=== PATIENT | male | born 1975 | race Caucasian/White ===

== ENCOUNTER 2021-07-31 01:56 | Emergency (ER) | payer BC ==
[2021-07-31] MEDS ORDERED: Ondansetron 4 MG/2 ML SDV IVPUSH ONE (02:18)
[2021-07-31] MEDS ORDERED: HYDROmorphone 0.5 MG/0.5 ML Syringe IVPUSH ONE ×3 (02:18→05:35)
--- NOTE | 2021-07-31 02:22 | EDM.PDOC ---
ED HPI GENERAL MEDICAL PROBLEM - General Chief Complaint: Flank Pain Stated Complaint: LOW LEFT BACK PAIN Time Seen by Provider: 07/31/21 02:19 Source of Information: Reports: Patient History Limitations: Reports: No Limitations - History of Present Illness INITIAL COMMENTS - FREE TEXT/NARRATIVE: pt states he started with pain in the lower left abdoman about 11 pm tonight. he then started to vomit and he is haviing more generalized abdomanal pain Onset: Today Duration: Hour(s): Location: Reports: Abdomen, Generalized Associated Symptoms: Reports: Nausea/Vomiting Abdominal Pain Score (Numeric/FACES): 3 - Related Data Allergies Allergy/AdvReac Type Severity Reaction Status Date / Time No Known Allergies Allergy Verified 07/31/21 02:14 Home Meds: Home Meds Albuterol [Proventil HFA] 200 puff INH Q4H 07/31/21 [History] ED ROS GENERAL - Review of Systems Review Of Systems: See Below Constitutional: Reports: Decreased Appetite HEENT: Reports: No Symptoms Respiratory: Reports: No Symptoms Cardiovascular: Reports: No Symptoms Endocrine: Reports: No Symptoms GI/Abdominal: Reports: Abdominal Pain, Nausea, Vomiting : Reports: No Symptoms Musculoskeletal: Reports: No Symptoms Skin: Reports: No Symptoms Neurological: Reports: No Symptoms Psychiatric: Reports: Anxiety ED EXAM, GI/ABD - Physical Exam Exam: See Below Text/Narrative:: pt arrived with severe abdomanal pain which started in the left flank area. He has no history of kidney stones. Exam Limited By: No Limitations General Appearance: Alert, Anxious, Severe Distress, Active Emesis (pupils are equal and reactive. ), Other Ears: Normal TMs Nose: Normal Inspection Throat/Mouth: Normal Inspection Head: Atraumatic Neck: Normal Inspection Respiratory/Chest: No Respiratory Distress Cardiovascular: Regular Rate, Rhythm GI/Abdominal Exam: Other (pt has generalized abdomanal tenderness. He has guarding. ) (Male) Exam: Deferred Rectal (Males) Exam: Deferred Back Exam: Normal Inspection Extremities: Normal Inspection Neurological: Alert, Oriented, Normal Cognition Course - Vital Signs Last Recorded V/S: Last Vital Signs Temp 36.7 C 07/31/21 02:15 Pulse 95 07/31/21 05:13 Resp 18 07/31/21 05:13 BP 131/70 07/31/21 05:13 Pulse Ox 93 L 07/31/21 05:13 - Orders/Labs/Meds Labs: Laboratory Tests 07/31/21 07/31/21 07/31/21 Range/Units 02:17 02:25 02:25 WBC 20.0 H (4.5-11.0) K/uL RBC 5.34 (4.30-5.90) M/uL Hgb 15.2 H (12.0-15.0) g/dL Hct 44.1 (40.0-54.0) % MCV 83 (80-98) fL MCH 29 (27-31) pg MCHC 35 (32-36) % Plt Count 217 (150-400) K/uL Neut % (Auto) 87.5 H (36-66) % Lymph % (Auto) 7.6 L (24-44) % [place] % (Auto) 4.4 (2-6) % Eos % (Auto) 0.3 L (2-4) % Baso % (Auto) 0.2 (0-1) % Sodium 137 L (140-148) mmol/L Potassium 3.6 (3.6-5.2) mmol/L Chloride 99 L (100-108) mmol/L Carbon Dioxide 28 (21-32) mmol/L Anion Gap 13.6 (5.0-14.0) mmol/L BUN 20 H (7-18) mg/dL Creatinine 1.4 H (0.8-1.3) mg/dL Est Cr Clr Drug Dosing 68.08 mL/min Estimated GFR (MDRD) 55 L (>60) Glucose 152 H (74-106) mg/dL Calcium 9.1 (8.5-10.1) mg/dL Total Bilirubin 0.7 (0.2-1.0) mg/dL AST 19 (15-37) U/L ALT 43 (12-78) U/L Alkaline Phosphatase 79 (46-116) U/L C-Reactive Protein < 0.05 (0.0-0.3) mg/dL Total Protein 7.5 (6.4-8.2) g/dL Albumin 4.2 (3.4-5.0) g/dL Globulin 3.3 (2.3-3.5) g/dL Albumin/Globulin Ratio 1.3 (1.2-2.2) Urine Color Yellow (YELLOW) Urine Appearance Slightly cloudy A (CLEAR) Urine pH 7.0 (5.0-8.0) Ur Specific [place] 1.025 (1.008-1.030) Urine Protein Negative (NEGATIVE) mg/dL Urine Glucose (UA) Negative (NEGATIVE) mg/dL Urine Ketones Negative (NEGATIVE) mg/dL Urine Occult Blood Negative (NEGATIVE) Urine Nitrite Negative (NEGATIVE) Urine Bilirubin Negative (NEGATIVE) Urine Urobilinogen 0.2 (0.2-1.0) EU/dL Ur Leukocyte Esterase Negative (NEGATIVE) Urine RBC 0-5 (0-5) Urine WBC 0-5 (0-5) Ur Epithelial Cells Rare Amorphous Sediment Moderate Urine Bacteria Moderate Urine Mucus Not seen Meds: Medications Discontinued Medications Generic Name Dose Route Start Last Admin Trade Name Freq PRN Reason Stop Dose Admin Hydromorphone HCl 0.5 mg 07/31/21 02:18 07/31/21 02:29 Hydromorphone 0.5 Mg/0.5 Ml Syringe IVPUSH 07/31/21 02:19 0.5 mg ONETIME ONE Administration Hydromorphone HCl 0.5 mg 07/31/21 02:58 07/31/21 03:03 Hydromorphone 0.5 Mg/0.5 Ml Syringe IVPUSH 07/31/21 02:59 0.5 mg ONETIME ONE Administration Hydromorphone HCl 0.5 mg 07/31/21 05:35 07/31/21 05:39 Hydromorphone 0.5 Mg/0.5 Ml Syringe IVPUSH 07/31/21 05:36 0.5 mg ONETIME ONE Administration Sodium Chloride 1,000 mls @ 999 mls/hr 07/31/21 02:30 07/31/21 02:29 Normal Saline IV 999 mls/hr ASDIRECTED KAILEY Administration Sodium Chloride 80 mls @ 3 mls/sec 07/31/21 03:30 07/31/21 03:34 Normal Saline IV 3 mls/sec ASDIRECTED KAILEY Administration Sodium Chloride 1,000 mls @ 500 mls/hr 07/31/21 04:15 07/31/21 04:43 Normal Saline IV 500 mls/hr ASDIRECTED KAILEY Administration Iopamidol 100 ml 07/31/21 03:16 07/31/21 03:34 Iopamidol 612 Mg/Ml 100 Ml Bottle IV 08/01/21 03:17 100 ml . DIRECTED PRN Administration RADIOLOGY EXAM Ondansetron HCl 4 mg 07/31/21 02:18 07/31/21 02:28 Ondansetron 4 Mg/2 Ml Sdv IVPUSH 07/31/21 02:19 4 mg ONETIME ONE Administration Sodium Chloride 10 ml 07/31/21 03:16 07/31/21 03:33 Sodium Chloride 0.9% 10 Ml Syringe FLUSH 10 ml ONETIME PRN Administration per radiology protocol - Re-Assessments/Exams Free Text/Narrative Re-Assessment/Exam: 07/31/21 05:14 cat scan showed a 5 mm stone in the bladder. Pt did have a 20,000 wbc which was felt to be related to severe pain. 08/03/21 07:39 Departure - Departure Time of Disposition: 05:15 Disposition: Home, Self-Care 01 Condition: Fair Clinical Impression: Ureteral calculus, left - Discharge Information Instructions: Kidney Stones, [id number] Referrals: PCP,None [Primary Care Provider] - Forms: ED Department Discharge Care Plan Goals: push fluids, rtc if persistent discomfort, Sepsis Event Note (ED) - Evaluation Sepsis Screening Result: No Definite Risk
[2021-07-31] MEDS ORDERED: Sodium Chloride 0.9% 1,000 ML IV SCH ×2 (02:30→04:15)
[2021-07-31] MEDS ORDERED: Iopamidol 612 MG/ML 100 ML Bottle IV PRN (03:16)
[2021-07-31] MEDS ORDERED: Sodium Chloride 0.9% 10 ML Syringe FLUSH PRN (03:16)
[2021-07-31] MEDS ORDERED: Sodium Chloride 0.9% 80 ML IV SCH (03:30)
--- NOTE | 2021-07-31 05:05 | CRLCT ---
For Patients: As a result of the Century Cures Act, medical imaging exams and procedure reports are released immediately into your electronic medical record. You may view this report before your referring provider. If you have questions, please contact your health care provider. INDICATION: Acute onset abdominal pain for the last 4 hours TECHNIQUE: CT abdomen and pelvis acquired with 100 cc Isovue-300 IV contrast. COMPARISON: None FINDINGS: Lower chest: Unremarkable. Liver: 1.4 x 2.0 cm hypodense lesion in the caudate lobe of the liver this measures 53 Hounsfield units in density. Spleen: Unremarkable. Pancreas: Unremarkable. Gallbladder and bile ducts: Unremarkable. Adrenal glands: Unremarkable. Kidneys: Mild left hydronephrosis and hydroureter. There is a 5 mm stone within the left side of the urinary bladder. Mild left perinephric fat stranding. No additional collecting system stone identified. GI tract: Unremarkable. Appendix is normal. Vascular structures: Unremarkable. Lymph nodes: Unremarkable. Miscellaneous: Small fat containing umbilical hernia. No free air or significant free fluid. Pelvic Organs: Unremarkable. Bones: Unremarkable for age. IMPRESSION: Mild left hydronephrosis and hydroureter. 5 mm stone in the urinary bladder. Findings are consistent with a recently passed renal stone. Indeterminate hypodense lesion in the liver. Recommend comparison with any prior CT. If no prior CTs available, consider MRI for further characterization. Please note that all CT scans at this facility use dose modulation, iterative reconstruction, and/or weight-based dosing when appropriate to reduce radiation dose to as low as reasonably achievable. Dictated by Liane Narvaez MD @ 07/31/2021 5:04:26 AM (Electronically Signed)
--- NOTE | 2021-08-03 08:37 | LETTER ---
08/03/2021 Kenneth Velasquez [address] [place] [address] RE: KENNETH VELASQUEZ : 1975 Dear Kenneth, You were at the emergency room with very severe abdominal pain and were found to have a 5 mm stone, which passed while you are here in the emergency room. Hopefully things are going well with you at this time and you are not having any further problems. It was noted on the CAT scan in addition to 5 mm stone in the bladder that there was a hypodense area in the liver, and it was recommended by the radiologist that if you had previous CAT scans that this CAT scan be compared to your previous ones, and obviously we are very willing to release this CAT scan to you or your radiologist to compare it. If you have not had previous CAT scans, this may need further evaluation and your own physician should obtain the CAT scan from [facility] and then proceed with workup. This may be a totally benign thing and something that has been there for an extended period of time, but it does need to be investigated. Thank you. Sincerely, /[id number]
== END 2021-07-31 06:10 | disposition home or self-care (01) ==
LOC: JP.ED 01:56
DX: N13.2 Hydronephrosis with renal and ureteral calculous obstruction (principal)
CPT/HCPCS: 36415; 74177; 80053; 81001; 85025; 86140; 87086; 96374; 96375; 96376; 99284; J1170; J2405; J7030; Q9967